=== PATIENT | female | born 1950 | race Caucasian/White ===

== ENCOUNTER 2018-05-11 19:30 | Emergency (ER) | payer SELFPAY ==
--- NOTE | 2018-05-11 20:30 | RAD ---
LEFT FOOT THREE VIEWS: HISTORY: A 68-year-old female with a history of great toe pain with ecchymosis under toenail. FINDINGS/IMPRESSION: Mild degenerative changes. No acute fracture or dislocation. POS: RRE
== END 2018-05-11 20:23 | disposition home or self-care (01) ==
LOC: SCSER 19:30
DX: M79.675 Pain in left toe(s) (principal); E03.9 Hypothyroidism, unspecified; Z79.899 Other long term (current) drug therapy